=== PATIENT | male | born 1940 | race Caucasian/White ===

== ENCOUNTER → 2017-03-13 | Outpatient (CLI) | payer MEDICARE ==
[~2017-03-13] MED LIST: ISOVUE-370 76% 100ML VIAL (Q9967) As Ordered ONE
--- NOTE | 2017-03-13 14:46 | REP ---
CT ANGIO HEAD: HISTORY: Carotid stenosis. CONTRAST: Isovue 370, 100 mL. There is no aneurysm or arteriovenous malformation. Calcified atherosclerotic plaques are present in the vertical petrous, cavernous and supraclinoid internal carotid arteries. These produce mild to moderate stenosis. Calcified atherosclerotic plaques are present in the vertebral arteries at the foramen magnum. These produce moderate to severe stenosis. The intracranial vessels are patent. The vertebral arteries are equal in size. IMPRESSION: 1. There is no aneurysm or arteriovenous malformation. 2. Atherosclerotic disease as described above. Signed by Taras Atkins MD 03/13/2017 02:56 P
--- NOTE | 2017-03-13 15:17 | REP ---
CT ANGIO NECK: ? HISTORY: Carotid stenosis. CONTRAST: Isovue 370, 100 mL. Calcified atherosclerotic plaques are present at the distal right common carotid artery and origins of the right external and internal carotid arteries. There is moderate stenosis of 40% of the distal right common carotid artery. There is moderate stenosis of 50% of the right internal carotid artery at its origin. There is moderate stenosis of 45% of the right external carotid artery at its origin. Calcified atherosclerotic plaques are present at the distal left common carotid artery and origins of the left external and internal carotid arteries. There is mild stenosis of 25% of the distal left common carotid artery. There is moderate stenosis of 60% of the left internal carotid artery at its origin. There is moderate stenosis of 40% of the left external carotid artery at its origin. A partially calcified atherosclerotic plaque is present in the proximal left common carotid artery at the level of the hyoid bone and thyroid cartilage. There is moderate stenosis of 55% of the left common carotid artery at this level. A small calcified atherosclerotic plaque is present in the distal cervical left internal carotid artery at the level of the skull base. There is no significant stenosis. Calcified atherosclerotic plaques are present in the distal vertebral arteries at the C1-2 level. These produce mild to moderate stenosis. Calcified atherosclerotic plaques are present at the origins of the great vessels. There is no significant stenosis. The origins of the vertebral arteries are normal in appearance. A 7 mm hypodensity is present in the right thyroid lobe. This most likely represents a cyst. Minimal mucosal thickening is present in the right mastoid air cells. IMPRESSION: 1. Moderate stenosis of the 50% of the right internal carotid artery at its origin. 2. Moderate stenosis at 60% of the left internal carotid artery at its origin. Signed by Taras Atkins MD 03/13/2017 03:32 P
--- NOTE | 2017-03-13 15:44 | REP ---
BILATERAL LOWER EXTREMITY DUPLEX DOPPLER ARTERY ULTRASOUND: Real-time ultrasound evaluation and duplex Doppler interrogation of bilateral lower extremity arterial systems is performed. RIGHT LOWER EXTREMITY: Moderate plaquing is seen diffusely throughout the arteries of the right lower extremity. There is also soft tissue edema. Anterior and posterior tibial arteries demonstrate monophasic waveforms and there is somewhat increased flow velocity in the distal anterior tibial artery. These findings raise the possibility of stenosis of the anterior and posterior tibial arteries. PEAK SYSTOLIC VELOCITY PHASICITY Common femoral artery 95.2 cm/s Biphasic Profunda 64.3 cm/s Biphasic Superficial femoral artery 96.8 cm/s Biphasic Popliteal 74.8 cm/s Biphasic Anterior tibial artery distal 124.2 cm/s Monophasic Tibial peroneal trunk 62 cm/s Biphasic Posterior tibial artery 78.5 cm/s Monophasic LEFT LOWER EXTREMITY: Diffuse moderate plaquing is seen throughout the left lower extremity arterial system and there is diffuse soft tissue edema. There are monophasic waveforms in the distal anterior tibial artery with a parvus tardus type waveform raising the possibility of significant stenosis of the left anterior tibial artery. PEAK SYSTOLIC VELOCITY PHASICITY Common femoral artery 96.6 cm/s Biphasic Profunda 71.1 cm/s Biphasic SFA 101.5 cm/s Biphasic Popliteal 68.2 cm/s Biphasic Anterior tibial artery distal 11.7 cm/s Monophasic Tibial peroneal trunk 48.4 cm/s Biphasic Posterior tibial artery 53.0 cm/s Biphasic Signed by Colin Colunga MD 03/13/2017 05:22 P
== END ==
LOC: M RAD 12:04
PROVIDERS: ATTEND Surgery Vascular Surgery
DX: M79.604 Pain in right leg (principal); M79.605 Pain in left leg; I65.23 Occlusion and stenosis of bilateral carotid arteries
CPT/HCPCS: 70496; 70498; 93923; Q9967

== ENCOUNTER 2017-11-24 20:21 | Inpatient (IN) | payer MEDICARE ==
[2017-11-24 22:29] LABS: BASO % 0.2 % (0.0-1.0); HEMATOCRIT 42.9 % (42.0-52.0); HEMOGLOBIN 14.8 g/dl (13.5-17.5); IMMATURE GRANULOCYTE % 0.6 % (0-3.0); LYMPH # 1.6 10^3/uL (1.5-4.5); LYMPH % 12.5 % (24.0-44.0); MEAN CORPUSCULAR HGB CONC 34.5 g/dl (32.0-36.5); MEAN CORPUSCULAR VOLUME 95.8 fl (80.0-96.0); MONO # 1.9 10^3/uL (0.0-0.8); MONO % 14.4 % (0.0-5.0); NEUTROPHILS # 9.4 10^3/uL (1.8-7.7); NEUTROPHILS % 72.3 % (36.0-66.0); PLATELET COUNT, AUTOMATED 194 10^3/uL (150-450); RED BLOOD COUNT 4.48 10^6/uL (4.30-6.10); RED CELL DISTRIBUTION WIDTH 12.4 % (11.5-14.5)
[2017-11-24 22:53] LABS: ALBUMIN 3.4 GM/DL (3.2-5.2); ALBUMIN/GLOBULIN RATIO 0.79 (1.00-1.93); ALKALINE PHOSPHATASE 76 U/L (45-117); ALT/SGPT 19 U/L (12-78); ANION GAP 8 MEQ/L (8-16); AST/SGOT 9 U/L (7-37); BILIRUBIN,DIRECT 0.2 MG/DL (0.0-0.2); BILIRUBIN,TOTAL 0.9 MG/DL (0.2-1.0); BLOOD UREA NITROGEN 28 MG/DL (7-18); CALCIUM LEVEL 8.3 MG/DL (8.8-10.2); CARBON DIOXIDE LEVEL 28 MEQ/L (21-32); CHLORIDE LEVEL 100 MEQ/L (98-107); CK-MB VALUE MASS < 1.0 NG/ML (<3.6); CPK CREATINE PHOSPHOKINASE 49 U/L (39-308); CREATININE FOR GFR 1.71 MG/DL (0.70-1.30); GLOMERULAR FILTRATION RATE 41.3 (>42); GLUCOSE, FASTING 127 MG/DL (70-100); MB/CK RELATIVE INDEX 2.04 (< OR =4); NT-PRO BNP 778 PG/ML (<450); SODIUM LEVEL 136 MEQ/L (136-145); TOTAL PROTEIN 7.7 GM/DL (6.4-8.2); TROPONIN I < 0.02 NG/ML (< 0.10)
[2017-11-24 23:14] LABS: C REACTIVE PROTEIN QUANTITATIV 9.79 MG/DL (0.00-0.30)
[2017-11-24 23:34] LABS: ERYTHROCYTE SEDIMENTATION RATE 26 mm/hr (0-20)
[2017-11-24] MEDS: NS 500 ML IV (23:39)
[2017-11-24] MEDS ORDERED: ceFAZolin 1GM INJ (J0690 PER 500MG) IM (23:45)
[2017-11-25] MEDS: ceFAZolin SOD 1 GM in D5W MINI-BAG PLUS 50 ML IV (00:10)
[2017-11-25] MEDS ORDERED: NS 750 ML IV (02:00)
[2017-11-25] MEDS: ACETAMINOPHEN TAB 650MG DOSE (2X325MG) PO (02:20)
[2017-11-25] MEDS: NS 250 ML IV (02:30)
[2017-11-25] MEDS: CALCIUM GLUCONATE 1,000 MG in D5W MINI-BAG PLUS 100 ML IV (02:39)
[2017-11-25] MEDS ORDERED: PILL CRUSHER/CUTTER 1 EACH XX (03:15)
[2017-11-25 03:20] LABS: ANION GAP 9 MEQ/L (8-16); BLOOD UREA NITROGEN 27 MG/DL (7-18); CALCIUM LEVEL 7.3 MG/DL (8.8-10.2); CARBON DIOXIDE LEVEL 26 MEQ/L (21-32); CHLORIDE LEVEL 104 MEQ/L (98-107); CREATININE FOR GFR 1.49 MG/DL (0.70-1.30); GLOMERULAR FILTRATION RATE 48.4 (>42); GLUCOSE, FASTING 117 MG/DL (70-100); POTASSIUM SERUM 4.1 MEQ/L (3.5-5.1); SODIUM LEVEL 139 MEQ/L (136-145)
[2017-11-25] MEDS: DOXYCYCLINE HYCLATE 100 MG in D5W MINI-BAG PLUS 100 ML IV ×2 (04:19→14:47)
[2017-11-25] MEDS: HEPARIN SOD (PORCINE) 5000 UNITS/ML VIAL SC ×3 (05:54→21:39)
[2017-11-25 07:17] LABS: BASO % 0.1 % (0.0-1.0); EOS % 0.2 % (0.0-3.0); HEMATOCRIT 37.9 % (42.0-52.0); HEMOGLOBIN 13.1 g/dl (13.5-17.5); IMMATURE GRANULOCYTE % 0.7 % (0-3.0); LYMPH % 22.1 % (24.0-44.0); MEAN CORPUSCULAR HEMOGLOBIN 32.9 pg (27.0-33.0); MEAN CORPUSCULAR HGB CONC 34.6 g/dl (32.0-36.5); MEAN CORPUSCULAR VOLUME 95.2 fl (80.0-96.0); MONO # 1.6 10^3/uL (0.0-0.8); MONO % 17.4 % (0.0-5.0); NEUTROPHILS # 5.4 10^3/uL (1.8-7.7); NEUTROPHILS % 59.5 % (36.0-66.0); PLATELET COUNT, AUTOMATED 179 10^3/uL (150-450); RED BLOOD COUNT 3.98 10^6/uL (4.30-6.10); RED CELL DISTRIBUTION WIDTH 12.3 % (11.5-14.5)
[2017-11-25 07:41] LABS: CHOLESTEROL LEVEL 138 MG/DL (<200); CHOLESTEROL RISK RATIO 2.875 (<5); HDL CHOLESTEROL 48 MG/DL (>40); LDL CHOLESTEROL 74.4 MG/DL (<100); MAGNESIUM LEVEL 2.1 MG/DL (1.8-2.4); NON-HDL-C 90 MG/DL; TRIGLYCERIDES LEVEL 78 MG/DL (<150)
[2017-11-25 07:43] LABS: ERYTHROCYTE SEDIMENTATION RATE 52 mm/hr (0-20)
[2017-11-25] MEDS: FAMOTIDINE 20 MG TAB PO (08:40)
[2017-11-25] MEDS: DOCUSATE SODIUM 100 MG CAP PO ×2 (08:40→20:32)
[2017-11-25] MEDS: oxyBUTYnin 5 MG TAB PO ×2 (08:40→20:32)
[2017-11-25] MEDS: CLOPIDOGREL 75 MG TAB PO ×2 (08:40→20:32)
[2017-11-25] MEDS: RANOLAZINE 500 MG ER TAB PO ×2 (08:40→20:32)
[2017-11-25] MEDS: ASPIRIN 81 MG ENTERIC TAB PO (08:40)
[2017-11-25] MEDS: FUROSEMIDE 40 MG TAB PO ×2 (08:40→20:33)
[2017-11-25] MEDS: METOPROLOL TART 25 MG TABLET PO ×2 (08:41→20:33)
[2017-11-25] MEDS: PARoxetine 10MG TABLET PO (08:41)
[2017-11-25] MEDS ORDERED: ceFAZolin SOD 1 GM in D5W MINI-BAG PLUS 50 ML IV (12:00)
[2017-11-25 14:19] LABS: KETONE, URINE AUTO RFX NEGATIVE (NEGATIVE); MUCUS, URINE RFX SMALL (NEGATIVE); NITRITE, URINE AUTO RFX NEGATIVE (NEGATIVE); RBC, URINE AUTO RFX 0 /HPF (0-3); SPECIFIC GRAVITY UR AUTO RFX 1.011 (1.002-1.035); SQUAM EPITHELIAL CELL UR AURFX 0 /HPF (0-6); WBC, URINE AUTO RFX 7 /HPF (0-3)
[2017-11-25 14:22] LABS: LEUKOCYTE ESTERASE UR AUTO RFX TRACE (NEGATIVE)
[2017-11-25 14:36] LABS: CREATININE,RANDOM URINE 82.6 MG/DL
[2017-11-25 14:36] LABS: CHLORIDE,RANDOM URINE < 10 MEQ/L; SODIUM,RANDOM URINE 22 MEQ/L
[2017-11-25] MEDS: amLODIPine 5 MG TAB PO (16:05)
[2017-11-25] MEDS: cloNIDine 0.1 MG TAB PO (19:20)
[2017-11-25] MEDS: ATORVASTATIN 20 MG TAB PO (20:33)
[2017-11-26] MEDS: DOXYCYCLINE HYCLATE 100 MG in D5W MINI-BAG PLUS 100 ML IV ×2 (03:00→14:44)
[2017-11-26] MEDS: HEPARIN SOD (PORCINE) 5000 UNITS/ML VIAL SC ×3 (05:41→21:03)
[2017-11-26 07:04] LABS: HEMATOCRIT 38.2 % (42.0-52.0); MEAN CORPUSCULAR HEMOGLOBIN 32.4 pg (27.0-33.0); MEAN CORPUSCULAR VOLUME 95.3 fl (80.0-96.0); PLATELET COUNT, AUTOMATED 181 10^3/uL (150-450); RED BLOOD COUNT 4.01 10^6/uL (4.30-6.10); RED CELL DISTRIBUTION WIDTH 12.2 % (11.5-14.5); WHITE BLOOD COUNT 9.1 10^3/uL (4.0-10.0)
[2017-11-26 07:15] LABS: ANION GAP 7 MEQ/L (8-16); BLOOD UREA NITROGEN 26 MG/DL (7-18); CALCIUM LEVEL 7.8 MG/DL (8.8-10.2); CARBON DIOXIDE LEVEL 29 MEQ/L (21-32); CHLORIDE LEVEL 104 MEQ/L (98-107); CREATININE FOR GFR 1.46 MG/DL (0.70-1.30); GLOMERULAR FILTRATION RATE 49.6 (>42); GLUCOSE, FASTING 108 MG/DL (70-100); POTASSIUM SERUM 4.1 MEQ/L (3.5-5.1); SODIUM LEVEL 140 MEQ/L (136-145)
[2017-11-26] MEDS: ASPIRIN 81 MG ENTERIC TAB PO (08:40)
[2017-11-26] MEDS: METOPROLOL TART 25 MG TABLET PO ×2 (08:40→21:03)
[2017-11-26] MEDS: FUROSEMIDE 40 MG TAB PO ×2 (08:40→21:02)
[2017-11-26] MEDS: CLOPIDOGREL 75 MG TAB PO ×2 (08:40→21:02)
[2017-11-26] MEDS: oxyBUTYnin 5 MG TAB PO ×2 (08:40→21:02)
[2017-11-26] MEDS: PARoxetine 10MG TABLET PO (08:40)
[2017-11-26] MEDS: DOCUSATE SODIUM 100 MG CAP PO ×2 (08:40→21:02)
[2017-11-26] MEDS: FAMOTIDINE 20 MG TAB PO (08:40)
[2017-11-26] MEDS: RANOLAZINE 500 MG ER TAB PO ×2 (08:41→21:02)
[2017-11-26] MEDS: VALSARTAN 80 MG TAB (DIOVAN) PO (09:17)
[2017-11-26] MEDS: ATORVASTATIN 20 MG TAB PO (21:02)
[2017-11-27] MEDS: DOXYCYCLINE HYCLATE 100 MG in D5W MINI-BAG PLUS 100 ML IV (03:15)
[2017-11-27] MEDS: HEPARIN SOD (PORCINE) 5000 UNITS/ML VIAL SC ×3 (06:00→20:54)
[2017-11-27] MEDS: ACETAMINOPHEN TAB 650MG DOSE (2X325MG) PO ×2 (06:09→20:53)
[2017-11-27 06:59] LABS: HEMATOCRIT 36.8 % (42.0-52.0); HEMOGLOBIN 12.8 g/dl (13.5-17.5); MEAN CORPUSCULAR HGB CONC 34.8 g/dl (32.0-36.5); MEAN CORPUSCULAR VOLUME 94.8 fl (80.0-96.0); PLATELET COUNT, AUTOMATED 191 10^3/uL (150-450); RED BLOOD COUNT 3.88 10^6/uL (4.30-6.10); RED CELL DISTRIBUTION WIDTH 12.4 % (11.5-14.5); WHITE BLOOD COUNT 9.6 10^3/uL (4.0-10.0)
[2017-11-27 07:21] LABS: ANION GAP 9 MEQ/L (8-16); BLOOD UREA NITROGEN 27 MG/DL (7-18); CALCIUM LEVEL 8.3 MG/DL (8.8-10.2); CARBON DIOXIDE LEVEL 26 MEQ/L (21-32); CHLORIDE LEVEL 104 MEQ/L (98-107); CREATININE FOR GFR 1.31 MG/DL (0.70-1.30); GLOMERULAR FILTRATION RATE 56.2 (>42); GLUCOSE, FASTING 125 MG/DL (70-100); POTASSIUM SERUM 3.8 MEQ/L (3.5-5.1); SODIUM LEVEL 139 MEQ/L (136-145)
[2017-11-27] MEDS: PARoxetine 10MG TABLET PO (09:13)
[2017-11-27] MEDS: CLOPIDOGREL 75 MG TAB PO ×2 (09:13→20:53)
[2017-11-27] MEDS: METOPROLOL TART 25 MG TABLET PO ×2 (09:13→20:57)
[2017-11-27] MEDS: ASPIRIN 81 MG ENTERIC TAB PO (09:13)
[2017-11-27] MEDS: DOCUSATE SODIUM 100 MG CAP PO ×2 (09:13→20:53)
[2017-11-27] MEDS: FUROSEMIDE 40 MG TAB PO ×2 (09:14→20:53)
[2017-11-27] MEDS: FAMOTIDINE 20 MG TAB PO (09:14)
[2017-11-27] MEDS: RANOLAZINE 500 MG ER TAB PO ×2 (09:14→20:53)
[2017-11-27] MEDS: VALSARTAN 80 MG TAB (DIOVAN) PO (09:14)
[2017-11-27] MEDS: oxyBUTYnin 5 MG TAB PO ×2 (09:14→20:52)
[2017-11-27] MEDS: ATORVASTATIN 20 MG TAB PO (20:52)
[2017-11-27] MEDS: DOXYCYCLINE HYCLATE 100 MG TAB PO (20:52)
[2017-11-28] MEDS: HEPARIN SOD (PORCINE) 5000 UNITS/ML VIAL SC ×3 (05:25→22:31)
[2017-11-28 06:36] LABS: HEMATOCRIT 38.1 % (42.0-52.0); HEMOGLOBIN 12.8 g/dl (13.5-17.5); MEAN CORPUSCULAR HEMOGLOBIN 32.3 pg (27.0-33.0); MEAN CORPUSCULAR HGB CONC 33.6 g/dl (32.0-36.5); MEAN CORPUSCULAR VOLUME 96.2 fl (80.0-96.0); PLATELET COUNT, AUTOMATED 203 10^3/uL (150-450); RED BLOOD COUNT 3.96 10^6/uL (4.30-6.10); RED CELL DISTRIBUTION WIDTH 12.4 % (11.5-14.5)
[2017-11-28 06:53] LABS: ANION GAP 8 MEQ/L (8-16); BLOOD UREA NITROGEN 31 MG/DL (7-18); CALCIUM LEVEL 8.3 MG/DL (8.8-10.2); CARBON DIOXIDE LEVEL 26 MEQ/L (21-32); CHLORIDE LEVEL 105 MEQ/L (98-107); CREATININE FOR GFR 1.36 MG/DL (0.70-1.30); GLOMERULAR FILTRATION RATE 53.8 (>42); GLUCOSE, FASTING 104 MG/DL (70-100); POTASSIUM SERUM 3.9 MEQ/L (3.5-5.1); SODIUM LEVEL 139 MEQ/L (136-145)
[2017-11-28] MEDS: DOXYCYCLINE HYCLATE 100 MG TAB PO (10:02)
[2017-11-28] MEDS: RANOLAZINE 500 MG ER TAB PO ×2 (10:02→20:20)
[2017-11-28] MEDS: oxyBUTYnin 5 MG TAB PO ×2 (10:03→20:20)
[2017-11-28] MEDS: PARoxetine 10MG TABLET PO (10:03)
[2017-11-28] MEDS: METOPROLOL TART 25 MG TABLET PO ×2 (10:03→20:21)
[2017-11-28] MEDS: FAMOTIDINE 20 MG TAB PO (10:04)
[2017-11-28] MEDS: FUROSEMIDE 40 MG TAB PO ×2 (10:04→20:22)
[2017-11-28] MEDS: CLOPIDOGREL 75 MG TAB PO ×2 (10:04→20:20)
[2017-11-28] MEDS: ASPIRIN 81 MG ENTERIC TAB PO (10:04)
[2017-11-28] MEDS: DOCUSATE SODIUM 100 MG CAP PO ×2 (10:04→20:20)
[2017-11-28] MEDS: VALSARTAN 80 MG TAB (DIOVAN) PO (10:04)
[2017-11-28] MEDS: CEFTAROLINE FOSAMIL 600 MG in D5W MINI-BAG PLUS 50 ML IV (13:08)
[2017-11-28] MEDS: ATORVASTATIN 20 MG TAB PO (20:20)
[2017-11-29] MEDS: CEFTAROLINE FOSAMIL 600 MG in D5W MINI-BAG PLUS 50 ML IV ×2 (01:05→12:03)
[2017-11-29] MEDS: HEPARIN SOD (PORCINE) 5000 UNITS/ML VIAL SC ×4 (06:21→22:22)
[2017-11-29 06:27] LABS: HEMOGLOBIN 12.1 g/dl (13.5-17.5); MEAN CORPUSCULAR HEMOGLOBIN 33.1 pg (27.0-33.0); MEAN CORPUSCULAR HGB CONC 33.6 g/dl (32.0-36.5); MEAN CORPUSCULAR VOLUME 98.4 fl (80.0-96.0); PLATELET COUNT, AUTOMATED 195 10^3/uL (150-450); RED BLOOD COUNT 3.66 10^6/uL (4.30-6.10); RED CELL DISTRIBUTION WIDTH 12.6 % (11.5-14.5); WHITE BLOOD COUNT 8.1 10^3/uL (4.0-10.0)
[2017-11-29 06:46] LABS: ANION GAP 9 MEQ/L (8-16); BLOOD UREA NITROGEN 31 MG/DL (7-18); CALCIUM LEVEL 8.3 MG/DL (8.8-10.2); CARBON DIOXIDE LEVEL 25 MEQ/L (21-32); CHLORIDE LEVEL 104 MEQ/L (98-107); CREATININE FOR GFR 1.44 MG/DL (0.70-1.30); GLOMERULAR FILTRATION RATE 50.4 (>42); GLUCOSE, FASTING 106 MG/DL (70-100); SODIUM LEVEL 138 MEQ/L (136-145)
[2017-11-29] MEDS: DOCUSATE SODIUM 100 MG CAP PO (09:32)
[2017-11-29] MEDS: RANOLAZINE 500 MG ER TAB PO ×2 (09:32→22:19)
[2017-11-29] MEDS: PARoxetine 10MG TABLET PO (09:33)
[2017-11-29] MEDS: oxyBUTYnin 5 MG TAB PO ×2 (09:33→20:09)
[2017-11-29] MEDS: FUROSEMIDE 40 MG TAB PO ×2 (09:33→20:09)
[2017-11-29] MEDS: CLOPIDOGREL 75 MG TAB PO ×2 (09:33→20:09)
[2017-11-29] MEDS: ASPIRIN 81 MG ENTERIC TAB PO (09:33)
[2017-11-29] MEDS: VALSARTAN 80 MG TAB (DIOVAN) PO (09:33)
[2017-11-29] MEDS: FAMOTIDINE 20 MG TAB PO (09:34)
[2017-11-29] MEDS: MOM 30ML SUSPENSION UDC PO (09:34)
[2017-11-29] MEDS: METOPROLOL TART 25 MG TABLET PO ×2 (09:34→20:10)
[2017-11-29] MEDS: MIRALAX *UNIT DOSE* 17GM PACKET PO ×2 (11:22→20:08)
[2017-11-29] MEDS: ACETAMINOPHEN TAB 650MG DOSE (2X325MG) PO (12:03)
[2017-11-29] MEDS: SODIUM CHLORIDE 0.9% INJ 10 ML SYR IV (18:52)
[2017-11-29] MEDS: SENOKOT S TAB PO (20:09)
[2017-11-29] MEDS: ATORVASTATIN 20 MG TAB PO (20:09)
[2017-11-30] MEDS: CEFTAROLINE FOSAMIL 600 MG in D5W MINI-BAG PLUS 50 ML IV ×2 (01:09→13:23)
[2017-11-30] MEDS: SODIUM CHLORIDE 0.9% INJ 10 ML SYR IV ×2 (05:17→17:48)
[2017-11-30] MEDS: HEPARIN SOD (PORCINE) 5000 UNITS/ML VIAL SC ×3 (05:18→21:36)
[2017-11-30 05:32] LABS: HEMATOCRIT 33.3 % (42.0-52.0); HEMOGLOBIN 11.4 g/dl (13.5-17.5); MEAN CORPUSCULAR HEMOGLOBIN 32.2 pg (27.0-33.0); MEAN CORPUSCULAR HGB CONC 34.2 g/dl (32.0-36.5); MEAN CORPUSCULAR VOLUME 94.1 fl (80.0-96.0); PLATELET COUNT, AUTOMATED 218 10^3/uL (150-450); RED BLOOD COUNT 3.54 10^6/uL (4.30-6.10); RED CELL DISTRIBUTION WIDTH 12.3 % (11.5-14.5); WHITE BLOOD COUNT 9.4 10^3/uL (4.0-10.0)
[2017-11-30 06:13] LABS: ANION GAP 7 MEQ/L (8-16); BLOOD UREA NITROGEN 33 MG/DL (7-18); CALCIUM LEVEL 7.8 MG/DL (8.8-10.2); CARBON DIOXIDE LEVEL 28 MEQ/L (21-32); CHLORIDE LEVEL 102 MEQ/L (98-107); CREATININE FOR GFR 1.52 MG/DL (0.70-1.30); GLOMERULAR FILTRATION RATE 47.3 (>42); GLUCOSE, FASTING 113 MG/DL (70-100); POTASSIUM SERUM 4.1 MEQ/L (3.5-5.1); SODIUM LEVEL 137 MEQ/L (136-145)
[2017-11-30] MEDS: SENOKOT S TAB PO ×3 (09:20→21:36)
[2017-11-30] MEDS: oxyBUTYnin 5 MG TAB PO ×2 (09:21→21:37)
[2017-11-30] MEDS: PARoxetine 10MG TABLET PO (09:21)
[2017-11-30] MEDS: CLOPIDOGREL 75 MG TAB PO ×2 (09:21→21:37)
[2017-11-30] MEDS: METOPROLOL TART 25 MG TABLET PO ×2 (09:21→22:45)
[2017-11-30] MEDS: RANOLAZINE 500 MG ER TAB PO ×2 (09:22→21:37)
[2017-11-30] MEDS: VALSARTAN 80 MG TAB (DIOVAN) PO (09:22)
[2017-11-30] MEDS: ASPIRIN 81 MG ENTERIC TAB PO (09:22)
[2017-11-30] MEDS: FAMOTIDINE 20 MG TAB PO (09:22)
[2017-11-30] MEDS: MIRALAX *UNIT DOSE* 17GM PACKET PO (09:23)
[2017-11-30] MEDS: MAGNESIUM CITRATE 300 ML BTL PO (13:23)
[2017-11-30] MEDS: ACETAMINOPHEN TAB 650MG DOSE (2X325MG) PO (18:13)
[2017-11-30] MEDS: ATORVASTATIN 20 MG TAB PO (21:37)
[2017-11-30] MEDS: MEROPENEM INJ 1 GM in APPROPRIATE DILUENT 1 EA IV (22:51)
[2017-12-01] MEDS: SODIUM CHLORIDE 0.9% INJ 10 ML SYR IV ×3 (05:14→18:00)
[2017-12-01] MEDS: HEPARIN SOD (PORCINE) 5000 UNITS/ML VIAL SC ×3 (05:14→21:10)
[2017-12-01 05:27] LABS: HEMATOCRIT 32.3 % (42.0-52.0); HEMOGLOBIN 10.9 g/dl (13.5-17.5); MEAN CORPUSCULAR HEMOGLOBIN 32.4 pg (27.0-33.0); MEAN CORPUSCULAR HGB CONC 33.7 g/dl (32.0-36.5); MEAN CORPUSCULAR VOLUME 96.1 fl (80.0-96.0); PLATELET COUNT, AUTOMATED 207 10^3/uL (150-450); RED BLOOD COUNT 3.36 10^6/uL (4.30-6.10); RED CELL DISTRIBUTION WIDTH 12.4 % (11.5-14.5); WHITE BLOOD COUNT 8.1 10^3/uL (4.0-10.0)
[2017-12-01 05:47] LABS: ERYTHROCYTE SEDIMENTATION RATE 79 mm/hr (0-20)
[2017-12-01 06:05] LABS: ANION GAP 7 MEQ/L (8-16); BLOOD UREA NITROGEN 34 MG/DL (7-18); CALCIUM LEVEL 7.9 MG/DL (8.8-10.2); CARBON DIOXIDE LEVEL 30 MEQ/L (21-32); CHLORIDE LEVEL 102 MEQ/L (98-107); CREATININE FOR GFR 1.47 MG/DL (0.70-1.30); GLOMERULAR FILTRATION RATE 49.2 (>42); GLUCOSE, FASTING 101 MG/DL (70-100); POTASSIUM SERUM 4.9 MEQ/L (3.5-5.1); SODIUM LEVEL 139 MEQ/L (136-145)
[2017-12-01] MEDS: MEROPENEM INJ 1 GM in APPROPRIATE DILUENT 1 EA IV ×3 (06:07→22:52)
[2017-12-01] MEDS: MIRALAX *UNIT DOSE* 17GM PACKET PO (09:56)
[2017-12-01] MEDS: SENOKOT S TAB PO ×2 (09:57→21:09)
[2017-12-01] MEDS: oxyBUTYnin 5 MG TAB PO ×2 (09:57→21:09)
[2017-12-01] MEDS: CLOPIDOGREL 75 MG TAB PO ×2 (09:57→21:09)
[2017-12-01] MEDS: PARoxetine 10MG TABLET PO (09:58)
[2017-12-01] MEDS: FUROSEMIDE 40 MG TAB PO (09:58)
[2017-12-01] MEDS: ASPIRIN 81 MG ENTERIC TAB PO (09:58)
[2017-12-01] MEDS: FAMOTIDINE 20 MG TAB PO (09:59)
[2017-12-01] MEDS: RANOLAZINE 500 MG ER TAB PO ×2 (10:00→21:09)
[2017-12-01] MEDS: VALSARTAN 80 MG TAB (DIOVAN) PO (10:03)
[2017-12-01] MEDS: METOPROLOL TART 25 MG TABLET PO ×2 (10:03→21:10)
[2017-12-01] MEDS: ATORVASTATIN 20 MG TAB PO (21:09)
[2017-12-01] MEDS: ACETAMINOPHEN TAB 650MG DOSE (2X325MG) PO (21:12)
[2017-12-02] MEDS: HEPARIN SOD (PORCINE) 5000 UNITS/ML VIAL SC ×3 (05:30→21:59)
[2017-12-02] MEDS: SODIUM CHLORIDE 0.9% INJ 10 ML SYR IV ×4 (05:30→17:30)
[2017-12-02 05:49] LABS: HEMATOCRIT 33.6 % (42.0-52.0); HEMOGLOBIN 11.3 g/dl (13.5-17.5); MEAN CORPUSCULAR HEMOGLOBIN 32.4 pg (27.0-33.0); MEAN CORPUSCULAR HGB CONC 33.6 g/dl (32.0-36.5); MEAN CORPUSCULAR VOLUME 96.3 fl (80.0-96.0); PLATELET COUNT, AUTOMATED 231 10^3/uL (150-450); RED BLOOD COUNT 3.49 10^6/uL (4.30-6.10); RED CELL DISTRIBUTION WIDTH 12.5 % (11.5-14.5); WHITE BLOOD COUNT 8.1 10^3/uL (4.0-10.0)
[2017-12-02 06:07] LABS: ANION GAP 8 MEQ/L (8-16); BLOOD UREA NITROGEN 38 MG/DL (7-18); CARBON DIOXIDE LEVEL 28 MEQ/L (21-32); CHLORIDE LEVEL 102 MEQ/L (98-107); GLOMERULAR FILTRATION RATE 48.1 (>42); GLUCOSE, FASTING 101 MG/DL (70-100); POTASSIUM SERUM 4.8 MEQ/L (3.5-5.1); SODIUM LEVEL 138 MEQ/L (136-145)
[2017-12-02] MEDS: MEROPENEM INJ 1 GM in APPROPRIATE DILUENT 1 EA IV ×3 (06:27→23:24)
[2017-12-02] MEDS: MIRALAX *UNIT DOSE* 17GM PACKET PO (09:35)
[2017-12-02] MEDS: SENOKOT S TAB PO ×2 (09:36→21:57)
[2017-12-02] MEDS: ASPIRIN 81 MG ENTERIC TAB PO (09:36)
[2017-12-02] MEDS: oxyBUTYnin 5 MG TAB PO ×2 (09:36→21:57)
[2017-12-02] MEDS: FAMOTIDINE 20 MG TAB PO (09:36)
[2017-12-02] MEDS: RANOLAZINE 500 MG ER TAB PO ×2 (09:36→21:58)
[2017-12-02] MEDS: FUROSEMIDE 40 MG TAB PO (09:37)
[2017-12-02] MEDS: CLOPIDOGREL 75 MG TAB PO ×2 (09:37→21:57)
[2017-12-02] MEDS: VALSARTAN 80 MG TAB (DIOVAN) PO (09:37)
[2017-12-02] MEDS: PARoxetine 10MG TABLET PO (09:38)
[2017-12-02] MEDS: METOPROLOL TART 25 MG TABLET PO (09:38)
[2017-12-02] MEDS: ATORVASTATIN 20 MG TAB PO (21:57)
[2017-12-03] MEDS: METOPROLOL TART 25 MG TABLET PO ×4 (02:14→21:00)
[2017-12-03] MEDS: HEPARIN SOD (PORCINE) 5000 UNITS/ML VIAL SC ×3 (05:34→21:06)
[2017-12-03] MEDS: SODIUM CHLORIDE 0.9% INJ 10 ML SYR IV ×2 (05:35→17:49)
[2017-12-03 05:54] LABS: HEMATOCRIT 32.4 % (42.0-52.0); HEMOGLOBIN 11.1 g/dl (13.5-17.5); MEAN CORPUSCULAR HEMOGLOBIN 32.5 pg (27.0-33.0); MEAN CORPUSCULAR HGB CONC 34.3 g/dl (32.0-36.5); MEAN CORPUSCULAR VOLUME 94.7 fl (80.0-96.0); PLATELET COUNT, AUTOMATED 243 10^3/uL (150-450); RED BLOOD COUNT 3.42 10^6/uL (4.30-6.10); RED CELL DISTRIBUTION WIDTH 12.3 % (11.5-14.5); WHITE BLOOD COUNT 7.9 10^3/uL (4.0-10.0)
[2017-12-03 06:13] LABS: ANION GAP 8 MEQ/L (8-16); BLOOD UREA NITROGEN 28 MG/DL (7-18); C REACTIVE PROTEIN QUANTITATIV 9.55 MG/DL (0.00-0.30); CALCIUM LEVEL 7.8 MG/DL (8.8-10.2); CARBON DIOXIDE LEVEL 28 MEQ/L (21-32); CHLORIDE LEVEL 103 MEQ/L (98-107); CREATININE FOR GFR 1.31 MG/DL (0.70-1.30); GLOMERULAR FILTRATION RATE 56.2 (>42); GLUCOSE, FASTING 108 MG/DL (70-100); MAGNESIUM LEVEL 2.4 MG/DL (1.8-2.4); POTASSIUM SERUM 5.1 MEQ/L (3.5-5.1); SODIUM LEVEL 139 MEQ/L (136-145)
[2017-12-03] MEDS: MEROPENEM INJ 1 GM in APPROPRIATE DILUENT 1 EA IV ×2 (06:42→14:22)
[2017-12-03] MEDS: VALSARTAN 80 MG TAB (DIOVAN) PO ×2 (09:00→09:35)
[2017-12-03] MEDS: ASPIRIN 81 MG ENTERIC TAB PO (09:33)
[2017-12-03] MEDS: MIRALAX *UNIT DOSE* 17GM PACKET PO (09:33)
[2017-12-03] MEDS: RANOLAZINE 500 MG ER TAB PO ×2 (09:33→21:05)
[2017-12-03] MEDS: SENOKOT S TAB PO ×2 (09:34→21:05)
[2017-12-03] MEDS: FAMOTIDINE 20 MG TAB PO (09:34)
[2017-12-03] MEDS: CLOPIDOGREL 75 MG TAB PO ×2 (09:35→21:05)
[2017-12-03] MEDS: FUROSEMIDE 40 MG TAB PO (09:35)
[2017-12-03] MEDS: oxyBUTYnin 5 MG TAB PO ×2 (09:35→21:05)
[2017-12-03] MEDS: PARoxetine 10MG TABLET PO (09:36)
[2017-12-03] MEDS: CEPHALEXIN 500 MG CAP PO (21:05)
[2017-12-03] MEDS: ATORVASTATIN 20 MG TAB PO (21:05)
[2017-12-04] MEDS: SODIUM CHLORIDE 0.9% INJ 10 ML SYR IV (05:31)
[2017-12-04] MEDS: HEPARIN SOD (PORCINE) 5000 UNITS/ML VIAL SC ×3 (05:31→21:17)
[2017-12-04] MEDS: CEPHALEXIN 500 MG CAP PO ×3 (05:32→21:16)
[2017-12-04 06:01] LABS: HEMATOCRIT 34.1 % (42.0-52.0); HEMOGLOBIN 11.8 g/dl (13.5-17.5); MEAN CORPUSCULAR HEMOGLOBIN 33.2 pg (27.0-33.0); MEAN CORPUSCULAR HGB CONC 34.6 g/dl (32.0-36.5); MEAN CORPUSCULAR VOLUME 96.1 fl (80.0-96.0); PLATELET COUNT, AUTOMATED 278 10^3/uL (150-450); RED BLOOD COUNT 3.55 10^6/uL (4.30-6.10); RED CELL DISTRIBUTION WIDTH 12.1 % (11.5-14.5); WHITE BLOOD COUNT 7.3 10^3/uL (4.0-10.0)
[2017-12-04 06:25] LABS: ANION GAP 5 MEQ/L (8-16); BLOOD UREA NITROGEN 26 MG/DL (7-18); CALCIUM LEVEL 8.2 MG/DL (8.8-10.2); CARBON DIOXIDE LEVEL 30 MEQ/L (21-32); CHLORIDE LEVEL 103 MEQ/L (98-107); CREATININE FOR GFR 1.22 MG/DL (0.70-1.30); GLOMERULAR FILTRATION RATE > 60.0 (>42); GLUCOSE, FASTING 99 MG/DL (70-100); MAGNESIUM LEVEL 2.1 MG/DL (1.8-2.4); SODIUM LEVEL 138 MEQ/L (136-145)
[2017-12-04] MEDS: VALSARTAN 80 MG TAB (DIOVAN) PO (09:00)
[2017-12-04] MEDS: METOPROLOL TART 25 MG TABLET PO ×2 (09:00→21:16)
[2017-12-04] MEDS: MIRALAX *UNIT DOSE* 17GM PACKET PO (09:25)
[2017-12-04] MEDS: RANOLAZINE 500 MG ER TAB PO ×2 (09:26→21:15)
[2017-12-04] MEDS: FAMOTIDINE 20 MG TAB PO (09:26)
[2017-12-04] MEDS: SENOKOT S TAB PO ×2 (09:26→21:15)
[2017-12-04] MEDS: PARoxetine 10MG TABLET PO (09:26)
[2017-12-04] MEDS: CLOPIDOGREL 75 MG TAB PO ×2 (09:27→21:16)
[2017-12-04] MEDS: FUROSEMIDE 40 MG TAB PO (09:27)
[2017-12-04] MEDS: ASPIRIN 81 MG ENTERIC TAB PO (09:27)
[2017-12-04] MEDS: oxyBUTYnin 5 MG TAB PO ×2 (09:27→21:16)
[2017-12-04] MEDS: LOSARTAN 50 MG TAB PO (11:10)
[2017-12-04] MEDS: ATORVASTATIN 20 MG TAB PO (21:15)
[2017-12-04] MEDS: ACETAMINOPHEN TAB 650MG DOSE (2X325MG) PO (21:17)
[2017-12-05] MEDS: CEPHALEXIN 500 MG CAP PO (05:58)
[2017-12-05] MEDS: MOM 30ML SUSPENSION UDC PO (05:58)
[2017-12-05] MEDS: HEPARIN SOD (PORCINE) 5000 UNITS/ML VIAL SC (05:58)
[2017-12-05] MEDS: FUROSEMIDE 40 MG TAB PO (08:43)
[2017-12-05] MEDS: RANOLAZINE 500 MG ER TAB PO (08:43)
[2017-12-05] MEDS: oxyBUTYnin 5 MG TAB PO (08:44)
[2017-12-05] MEDS: SENOKOT S TAB PO (08:44)
[2017-12-05] MEDS: PARoxetine 10MG TABLET PO (08:44)
[2017-12-05] MEDS: CLOPIDOGREL 75 MG TAB PO (08:44)
[2017-12-05] MEDS: MIRALAX *UNIT DOSE* 17GM PACKET PO (08:44)
[2017-12-05] MEDS: FAMOTIDINE 20 MG TAB PO (08:44)
[2017-12-05] MEDS: ASPIRIN 81 MG ENTERIC TAB PO (08:44)
[2017-12-05] MEDS: LOSARTAN 50 MG TAB PO (08:44)
[2017-12-05] MEDS: METOPROLOL TART 25 MG TABLET PO (08:45)
== END 2017-12-05 11:40 | DRG 872 ==
LOC: M ED INP 11-25 02:35 → M MSPAV 11-25 03:39 → M ED 20:21
PROC: 02HV33Z Insertion of Infusion Device into Superior Vena Cava, Percutaneous Approach (ICD-10-PCS; principal; 2017-11-29)
DX: A41.9 Sepsis, unspecified organism (principal); L03.116 Cellulitis of left lower limb; I13.0 Hypertensive heart and chronic kidney disease with heart failure and stage 1 through stage 4 chronic kidney disease, or unspecified chronic kidney disease; Z68.42 Body mass index [BMI] 45.0-49.9, adult; N18.3 Chronic kidney disease, stage 3 (moderate); S80.812A Abrasion, left lower leg, initial encounter; S62.001A Unspecified fracture of navicular [scaphoid] bone of right wrist, initial encounter for closed fracture; E66.01 Morbid (severe) obesity due to excess calories; I25.10 Atherosclerotic heart disease of native coronary artery without angina pectoris; I50.9 Heart failure, unspecified; G47.33 Obstructive sleep apnea (adult) (pediatric); K59.00 Constipation, unspecified; F32.9 Major depressive disorder, single episode, unspecified; K21.9 Gastro-esophageal reflux disease without esophagitis; E78.5 Hyperlipidemia, unspecified; Z88.0 Allergy status to penicillin; Z79.82 Long term (current) use of aspirin; Z79.02 Long term (current) use of antithrombotics/antiplatelets; Z79.899 Other long term (current) drug therapy; Z87.891 Personal history of nicotine dependence; W01.0XXA Fall on same level from slipping, tripping and stumbling without subsequent striking against object, initial encounter; Y92.009 Unspecified place in unspecified non-institutional (private) residence as the place of occurrence of the external cause; Y93.01 Activity, walking, marching and hiking; Z95.9 Presence of cardiac and vascular implant and graft, unspecified

== ENCOUNTER → 2020-05-06 | Outpatient (REF) | payer MEDICARE ==
[~2020-05-06] MED LIST changes: +ASPI81TA86 PO; +ATOR1TAB21 PO; +CEPH500C PO; +CLOP75TA2 PO; +COLA100C5 PO; +COZA50TA PO; +DIOV80TA3 PO; +FAMO1TAB11 PO; +FISH7.5C PO; +FURO40TA2 PO; -ISOVUE-370 76% 100ML VIAL (Q9967) As Ordered ONE; +METO50TA7 PO; +OXYB5TAB10 PO; +PARO5TAB PO; +RANE1000 PO
== END ==
LOC: M SMT 13:29
PROVIDERS: ATTEND Urology
DX: N32.9 Bladder disorder, unspecified (principal)
CPT/HCPCS: 88108; G0463

== ENCOUNTER → 2020-06-15 | Outpatient (CLI) | payer MEDICARE ==
[~2020-06-15] MED LIST changes: +ALLO10TA PO; +FLOM0.4C39 PO
--- NOTE | 2020-06-21 13:11 | ECHO ---
DATE OF PROCEDURE: 06/15/2020 Age: 80 Gender: Male Height: 173 cm Weight: 138 kg REFERRING PHYSICIAN: Dr. London Reason INDICATION: Ischemic heart disease. MEASUREMENTS: 2D Measurements: Aortic root 3.3 cm Left atrium 4.0 cm Intraventricular septum 1.2 cm Posterior wall 1.13 cm Left ventricle diastole 4.3 cm Left atrial volume index 15 cm Inferior vena cava 1.6 cm Doppler Measurements: No aortic stenosis No aortic regurgitation Aortic valve velocity 227 cm/s LVOT velocity 134 cm/s Trace mitral regurgitation Mitral E velocity 85.0 cm/s Mitral A velocity 91.9 cm/s Mitral deceleration time 218 msec No tricuspid regurgitation Very mild pulmonic regurgitation Pulmonary artery systolic pressure 31 mmHg MITRAL ANNULAR TISSUE DOPPLER E prime septal 7.2 cm/s, E prime lateral 5.1 cm/s DESCRIPTION: Rhythm was sinus. This was a technically difficult echocardiogram. No pericardial effusion. This was a 2D, M-mode, color flow Doppler, and pulsed wave Doppler examination including mitral annular tissue Doppler. CONCLUSIONS: 1. Visual appearance of overall normal LV systolic function. LVEF 65% by visual estimate. Technically difficult for complete endocardial visualization and therefore for precise regional wall motion analysis. No obvious regional wall motion abnormalities were apparent. Grade 1 LV diastolic dysfunction. 2. Normal right ventricle size and systolic function. 3. Mild aortic valve sclerosis of a 3-cuspid aortic valve. 4. No aortic stenosis or regurgitation. 5. Mild mitral annular calcification. Trace mitral regurgitation. 6. Technically difficult echocardiogram. [facility]
== END ==
LOC: M CARPUL 12:20
PROVIDERS: ATTEND Internal Medicine
DX: Z01.818 Encounter for other preprocedural examination (principal); I25.9 Chronic ischemic heart disease, unspecified

== ENCOUNTER 2020-07-12 10:56 | Day surgery (SDC) | payer MEDICARE ==
[~2020-07-12] VITALS: Ht 175.3 cm; Wt 119.3 kg
[~2020-07-12 10:56] MED LIST changes: +CIPROFLOXACIN 400 MG in IV 1 EA IV ONE; +LIDOCAINE 1% MDV 20ML VIAL SQ PRN; +LIDOCAINE 2% 100MG/5ML SDV (FOR ANES.) As Ordered ONE; +LR 1,000 ML IV ONE; +MIDAZOLAM INJ 2MG/2ML VIAL (J2250 PER 1MG) As Ordered ONE; +ROCURONIUM BROMIDE 50 MG/5 ML VIAL As Ordered ONE; +fentaNYL 250 MCG/5 ML INJECTION (J3010) As Ordered ONE; +propofoL 200 MG/20 ML VIAL As Ordered ONE
[2020-07-12] MEDS ORDERED: KETOROLAC 60MG 2ML VIAL As Ordered ONE (14:22)
[2020-07-12] MEDS ORDERED: ONDANSETRON 4MG/2ML VIAL As Ordered ONE (14:22)
[2020-07-12] MEDS ORDERED: SUGAMMADEX SODIUM 500 MG/5 ML VIAL (BRIDION) As Ordered ONE (14:23)
[2020-07-12] MEDS ORDERED: ePHEDrine SULFATE 25 MG/5 ML(5MG/ML) SYRINGE As Ordered ONE (14:27)
[2020-07-12] MEDS ORDERED: fentaNYL 100 MCG/2 ML INJECTION (J3010) As Ordered ONE (15:19)
[2020-07-12] MEDS ORDERED: METOCLOPRAMIDE INJ 10MG/2ML VIAL (J2765 PER 1) IV PRN (15:30)
[2020-07-12] MEDS ORDERED: LR 1,000 ML IV SCH (15:30)
[2020-07-12] MEDS ORDERED: ACETAMINOPHEN TAB 650MG DOSE (2X325MG) PO PRN ×2 (15:30→16:30)
[2020-07-12] MEDS ORDERED: fentaNYL 100 MCG/2 ML INJECTION (J3010) IV PRN (15:30)
[2020-07-12] MEDS ORDERED: ONDANSETRON 4MG/2ML VIAL IV PRN (15:30)
--- NOTE | 2020-07-12 15:45 | RO ---
OPERATIVE NOTE DATE OF OPERATION: 07/12/2020 PRE-PROCEDURE DIAGNOSIS: Bladder tumors. POST-PROCEDURE DIAGNOSIS: Bladder tumors. PROCEDURES: 1. Cystoscopy. 2. Transurethral resection of bladder tumors (between 2 and 5 cm). SURGEON: Blaise Lopez MD TIMBER CRUISER: None. ANESTHESIA: General. 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 He was brought to the operating room today for treatment. DESCRIPTION OF PROCEDURE: The patient was brought to the operating room and general anesthesia was induced. Prophylactic antibiotics were infused. He was placed in the dorsal lithotomy position and prepped and draped in the usual sterile fashion. At this point, a resectoscope was inserted in the urethral meatus and advanced to the bladder using the visual obturator. Of note, the patient had a moderate sized papillary tumor sort of growing on the stalk on the left lateral wall, just above the level of the trigone. There was an additional collection of papillary tumors growing near the left ureteral orifice as well. At this point, a gyrus loop was utilized to resect all of the tumors. I made sure that I was able to get down to the muscle layer. I did not resect on top of the ureteral orifice. All of the tumors were then washed out of the bladder to be sent for pathology analysis. I then cauterized the base of the resection. Once I was done cauterizing the base of the resection with good hemostasis, I examined the left ureteral orifice and it did continue to efflux clear urine. Once that was done, the resectoscope was removed and an 18-Czech Handley catheter was inserted into the bladder. The balloon was filled with 10 mL of sterile water and then the catheter was connected to gravity drainage. This marked the conclusion of the procedure. The patient was taken out of the dorsal lithotomy position, awakened from anesthesia, and transported to the recovery room in stable condition ESTIMATED BLOOD LOSS: 5 mL. COMPLICATIONS: None. SPECIMENS: Bladder tumors. PLAN: The patient will follow up in the Urology Clinic in approximately one week for catheter removal and to discuss the pathology results.
[2020-07-12] MEDS ORDERED: LABETALOL 100MG/20ML VIAL As Ordered ONE (15:47)
[2020-07-12] MEDS: LABETALOL 100MG/20ML VIAL IV SCH ×3 (15:50→16:00)
[2020-07-12] MEDS ORDERED: hydrALAZINE 20MG/ML 1ML VIAL (J0360 PER 20MG) As Ordered ONE (15:59)
[2020-07-12] MEDS: hydrALAZINE 20MG/ML 1ML VIAL (J0360 PER 20MG) IV SCH ×4 (16:07→16:31)
[2020-07-12] MEDS ORDERED: LOSARTAN 50MG TABLET PO ONE (16:25)
[2020-07-12 16:31] VITALS: BP 184/79
[2020-07-12 17:20] VITALS: BP 131/60
== END 2020-07-12 17:38 | disposition home or self-care (01) ==
LOC: M SDC 10:56
PROVIDERS: ATTEND Urology
DX: C67.8 Malignant neoplasm of overlapping sites of bladder (principal); I10 Essential (primary) hypertension; I25.10 Atherosclerotic heart disease of native coronary artery without angina pectoris; I25.2 Old myocardial infarction; Z98.61 Coronary angioplasty status; Z79.02 Long term (current) use of antithrombotics/antiplatelets; E78.5 Hyperlipidemia, unspecified; Z87.891 Personal history of nicotine dependence; Z79.82 Long term (current) use of aspirin; Z79.899 Other long term (current) drug therapy; N40.0 Benign prostatic hyperplasia without lower urinary tract symptoms; G47.33 Obstructive sleep apnea (adult) (pediatric)
CPT/HCPCS: 52235; 88305; J0360; J0744; J1885; J2250; J2405; J3010

== ENCOUNTER → 2020-10-18 | Outpatient (REF) | payer MEDICARE ==
[~2020-10-18] MED LIST changes: -CIPROFLOXACIN 400 MG in IV 1 EA IV ONE; -LIDOCAINE 1% MDV 20ML VIAL SQ PRN; -LIDOCAINE 2% 100MG/5ML SDV (FOR ANES.) As Ordered ONE; -LR 1,000 ML IV ONE; -MIDAZOLAM INJ 2MG/2ML VIAL (J2250 PER 1MG) As Ordered ONE; -ROCURONIUM BROMIDE 50 MG/5 ML VIAL As Ordered ONE; -fentaNYL 250 MCG/5 ML INJECTION (J3010) As Ordered ONE; -propofoL 200 MG/20 ML VIAL As Ordered ONE
== END ==
LOC: M SMT 19:16
PROVIDERS: ATTEND Urology
DX: C67.9 Malignant neoplasm of bladder, unspecified (principal)

== ENCOUNTER → 2021-02-07 | Outpatient (REF) | payer MEDICARE | LOC: M SMT 13:12 | PROVIDERS: ATTEND Urology | DX: C67.9 Malignant neoplasm of bladder, unspecified (principal) ==

== ENCOUNTER → 2021-05-09 | Outpatient (REF) | payer MEDICARE | LOC: M SMT 18:15 | PROVIDERS: ATTEND Urology | DX: C67.9 Malignant neoplasm of bladder, unspecified (principal) | CPT/HCPCS: 52000; 88108; G0463 ==

== ENCOUNTER → 2021-08-01 | Outpatient (REF) | payer MEDICARE | LOC: M SMT 12:37 | PROVIDERS: ATTEND Urology | DX: C67.9 Malignant neoplasm of bladder, unspecified (principal) ==

== ENCOUNTER → 2022-02-06 | Outpatient (REF) | payer MEDICARE ==
[~2022-02-06] MED LIST changes: +FISH10005 PO; -FISH7.5C PO
== END ==
LOC: M SMT 12:44
PROVIDERS: ATTEND Urology
DX: C67.9 Malignant neoplasm of bladder, unspecified (principal)

== ENCOUNTER → 2022-08-08 | Outpatient (REF) | payer MEDICARE | LOC: M SMT 17:33 | PROVIDERS: ATTEND Urology | DX: C67.9 Malignant neoplasm of bladder, unspecified (principal); Z88.0 Allergy status to penicillin; Z88.1 Allergy status to other antibiotic agents ==

== ENCOUNTER 2023-08-01 12:18 | Emergency (ER) | payer MEDICARE ==
[~2023-08-01] VITALS: Ht 175.3 cm; Wt 135.1 kg
[~2023-08-01 12:18] MED LIST changes: -ATOR80TA59 PO; -LIDOCAINE 1% MDV 20ML VIAL As Ordered ONE; -LOSA50TA28 PO; -RANO10002 PO; -TORS20TA2 PO; -TRAZ-252 PO
[2023-08-01] MEDS ORDERED: MED REC IN PROGRESS XX SCH (12:50)
[2023-08-01 13:04] LABS: BASO % 0.6 % (0.0-1.0); EOS # 0.4 10^3/uL (0.0-0.5); HEMATOCRIT 33.4 % (42.0-52.0); HEMOGLOBIN 10.9 g/dl (13.5-17.5); LYMPH # 1.8 10^3/uL (1.5-5.0); LYMPH % 24.8 % (24.0-44.0); MEAN CORPUSCULAR HGB CONC 32.6 g/dl (32.0-36.5); MONO # 0.8 10^3/uL (0.0-0.8); MONO % 10.7 % (2.0-8.0); NEUTROPHILS # 4.2 10^3/uL (1.5-8.5); NEUTROPHILS % 57.8 % (36.0-66.0); PLATELET COUNT, AUTOMATED 227 10^3/uL (150-450); RED BLOOD COUNT 3.21 10^6/uL (4.30-6.10); WHITE BLOOD COUNT 7.3 10^3/uL (4.0-10.0)
[2023-08-01 13:16] LABS: INR 1.04; PROTHROMBIN TIME 13.3 SECONDS (12.5-14.5)
[2023-08-01 14:01] LABS: CK-MB VALUE MASS 1.7 NG/ML (<3.6)
[2023-08-01 14:02] LABS: LIPASE 28 U/L (12-53)
[2023-08-01 14:05] LABS: FREE T4 0.94 NG/DL (0.89-1.76)
[2023-08-01 14:06] LABS: THYROID STIMULATING HORMONE 7.057 uIU/ML (0.55-4.78)
[2023-08-01] MEDS ORDERED: LOSA50TA28 PO (14:07)
[2023-08-01] MEDS ORDERED: TORS20TA2 PO (14:07)
[2023-08-01] MEDS ORDERED: ATOR80TA59 PO (14:07)
[2023-08-01] MEDS ORDERED: RANO10002 PO (14:07)
[2023-08-01 14:09] LABS: ALBUMIN 2.6 G/DL (3.2-5.2); ALKALINE PHOSPHATASE 75 U/L (46-116); ALT/SGPT 20 U/L (7.0-40); AST/SGOT 15 U/L (<34); BILIRUBIN,DIRECT 0.2 MG/DL (<0.4); BILIRUBIN,TOTAL 0.4 MG/DL (0.3-1.2); BLOOD UREA NITROGEN 29 MG/DL (9-23); CALCIUM LEVEL 8.3 MG/DL (8.3-10.6); CARBON DIOXIDE LEVEL 33 MMOL/L (20-31); CHLORIDE LEVEL 107 MMOL/L (98-107); CPK CREATINE PHOSPHOKINASE 47 U/L (46-171); CREATININE FOR GFR 1.18 MG/DL (0.70-1.30); GLOMERULAR FILTRATION RATE > 60.0 (>35); GLUCOSE, FASTING 133 MG/DL (74-106); MB/CK RELATIVE INDEX 3.61 (< OR =4); POTASSIUM SERUM 4.4 MMOL/L (3.5-5.1); SODIUM LEVEL 141 MMOL/L (136-145); TOTAL PROTEIN 5.6 G/DL (5.7-8.2)
[2023-08-01] MEDS ORDERED: TRAZ-252 PO (14:09)
[2023-08-01] MEDS ORDERED: HOME MED LIST COMPLETE! XX SCH (14:10)
[2023-08-01] MEDS ORDERED: ISOVUE-370 76% 100ML VIAL As Ordered ONE (14:13)
[2023-08-01 15:16] LABS: CK-MB VALUE MASS 1.3 NG/ML (<3.6)
[2023-08-01 15:18] LABS: MB/CK RELATIVE INDEX 2.54 (< OR =4)
[2023-08-01 17:01] VITALS: BP 158/121; TEMP 98.5; O2SAT 99
== END 2023-08-01 17:35 | disposition home or self-care (01) ==
LOC: M ED 12:18
DX: R07.9 Chest pain, unspecified (principal); R91.8 Other nonspecific abnormal finding of lung field; J90 Pleural effusion, not elsewhere classified; I50.20 Unspecified systolic (congestive) heart failure; I25.2 Old myocardial infarction; K21.9 Gastro-esophageal reflux disease without esophagitis; Z95.5 Presence of coronary angioplasty implant and graft; Z88.0 Allergy status to penicillin; Z79.899 Other long term (current) drug therapy
CPT/HCPCS: 32408; 36415; 71275; 77012; 80047; 80048; 80076; 82550; 82553; 83690; 83880; 84439; 84443; 84484; 85025; 85610; 85730; 88305; 93005; 93041; 94760; 99285; Q9967

== ENCOUNTER → 2023-08-01 | Outpatient (CLI) | payer MEDICARE ==
[~2023-08-01] MED LIST changes: +ATOR80TA59 PO; -COZA50TA PO; +LIDOCAINE 1% MDV 20ML VIAL As Ordered ONE; +LOSA-528 PO; +LOSA50TA28 PO; -OXYB5TAB10 PO; +OXYB5TAB14 PO; +RANO10002 PO; +TORS20TA2 PO; +TRAZ-252 PO
[2023-08-01 07:50] VITALS: TEMP 97.5
[2023-08-01 11:30] VITALS: BP 154/68; O2SAT 99
== END ==
LOC: M IRPRO 07:43
PROVIDERS: ATTEND Internal Medicine Pulmonary Disease
DX: R91.8 Other nonspecific abnormal finding of lung field (principal)